=== PATIENT | female | born 1955 | race Caucasian/White ===

== ENCOUNTER → 2021-05-18 | Outpatient (CLI) | payer BC | LOC: KOH-I 13:10 | DX: M54.50 Low back pain, unspecified (principal); M25.551 Pain in right hip; M51.36 Other intervertebral disc degeneration, lumbar region | CPT/HCPCS: 72100; 73502 ==

== ENCOUNTER → 2021-07-02 | Outpatient (CLI) | payer BC | LOC: KOH-I 14:52 | DX: M25.511 Pain in right shoulder (principal); M25.561 Pain in right knee; M25.551 Pain in right hip | CPT/HCPCS: 73030; 73502; 73562 ==